=== PATIENT | male | born 1995 | race Caucasian/White ===

== ENCOUNTER 2024-03-11 18:44 | Emergency (ER) | payer BC, SELFPAY ==
[2024-03-11 18:46] VITALS: BP 144/97; BMI 22.3
[2024-03-11] MEDS: VIBRAMYCIN 100 MG PO (20:03)
[2024-03-11] MEDS: MOTRIN 600 MG PO (20:04)
--- NOTE | 2024-03-11 20:31 | ED.GENMED ---
History of Present Illness
General
Chief Complaint: Extremity Pain (non-traumatic)
Source: patient and significant other
Exam Limitations: none
Time Seen by Provider: 03/11/24 19:29
Travel History
Have you had any contact with someone who has COVID-19?: No
Do you have any symptoms of coronavirus? Fever > 100 degrees, chills, cough, shortness of breath, sore throat, loss of taste or smell, muscle aches, or headache?: No
History of Present Illness
History of Present Illness:
this is 28yo male who presents with a swollen and red L elbow. he states he had a little 'bug bite' at his left elbow recently but it had been healing. it was not pustulous. he states that he bumped his L elbow yesterday and it hurt a bit. But
today he noticed swelling and redness. He does have a notable screw in his left elbow that he obtained about 15 years ago after fracture. Patient denies fevers. No history of MRSA.
Past History
Past History
ED Past Medical History: None
ED Past Surgical History: Orthopedic
Social History
Tobacco: Non-smoker
Personal: Single
Living: with family
Phy Exam
Physical Exam
Physical Exam:
CONSTITUTIONAL Vital signs reviewed, Patient alert and oriented to person, place and time. Well-appearing
HEAD atraumatic, normocephalic.
EYES eyelids normal to inspection, Extraocular muscles intact, Conjunctiva normal, Sclera normal.
NECK normal range of motion, Trachea midline, no jugular venous distention.
RESP no respiratory distress
BACK No obvious deformities
UPPER EXTREMITY Gross Range of motion normal, gross motor strength normal. Swollen olecranon bursa on the left with surrounding redness. There is a scabbed lesion on the lateral aspect. He has mild tenderness at the left olecranon bursa. There
is mild warmth. Full range of motion of the elbow and no noted effusion
LOWER EXTREMITY Gross range of motion normal, Gross motor strength normal
NEURO Speech normal, No focal motor deficits include, [place] coma scale 15, Memory normal, Cranial Nerves intact to screening exam.
SKIN Skin warm, dry, and normal in color.
PSYCHIATRIC Patient oriented to person place and time, Normal affect.
Course
Orders/Labs/Results
Orders:
Orders
03/11/24 19:38
CR Elbow - Left Min 3 Views Urgent
Comment:
Reason For Exam: swelling, pain
03/11/24 19:42
Ibuprofen [Motrin] 600 mg PO NOW STA
03/11/24 19:49
Doxycycline [Vibramycin] 100 mg PO NOW STA
Vital Signs
Initial and Last Documented VS:
Initial Vital Signs
Temp Pulse Resp BP Pulse Ox
98.2 F 101 20 144/97 100
03/11/24 18:46 03/11/24 18:46 03/11/24 18:46 03/11/24 18:46 03/11/24 18:46
Last Documented Vital Signs
Temp Pulse Resp BP Pulse Ox
98.2 F 101 20 144/97 100
03/11/24 18:46 03/11/24 18:46 03/11/24 18:46 03/11/24 18:46 03/11/24 18:46
MDM/Problems Addressed
MDM/Problems Addressed:
Septic olecranon bursitis
*Radiology
Radiology exam reviewed: all reviewed NAD by ED Provider
*Pulse Oximetry
Patient hypoxic: no
*Critical Care Note
Total Time (30-74mins, 75-104mins- exclusive of procedures): Not Applicable
Data Reviewed
Source: patient
Prescriptions/Medications Considered But Not Given:
Considered Bactrim but his father has a history of sulfa allergy and will avoid for now
Patient Management
Escalation/DeEscalation of care consider admission/obs:
Small area of redness. Not indicated to aspirate size and drain. Recommended warm compresses and outpatient orthopedic follow-up.
ED Attending Note
-
Portions of this chart may have been created with voice recognition software.� Occasional wrong word or��sound alike� substitutions may have occurred due to the inherent limitations of voice recognition software.
Discharge Plan
Departure
Patient Disposition: Home (Routine Discharge)
Date of Disposition: 03/11/24
Time of Disposition: 20:31
Patient with high blood pressure during this ER visit?: Yes
Discharge Problem:
Septic olecranon bursitis
Instructions: Bursitis ED, BLOOD PRESSURE
Prescriptions:
New
doxycycline monohydrate 100 mg capsule
100 mg PO BID Qty: 14 0RF
No Action
No Meds [No Current Medications]
0
Referrals:
Kevin Nath MD [Active] -
Sergio Juares MD [Family Provider] -
Activity Restrictions/Additional Instructions:
Please avoid pressure on the elbow. Use warm compresses and return immediately for worsening redness, fevers, worsening pain or any other concerns. Please see your doctor or orthopedics in the next 3 to 5 days for follow-up and reevaluation
Interventions
Interventions:
*Risk Screen - Suicide Last Done: 03/11/24 18:46
*Neglect/Abuse Screening Last Done: 03/11/24 18:46
ED- Fall Risk Assessment Last Done: 03/11/24 19:24
*ED COVID-19 Vaccine History Last Done: 03/11/24 18:46
*Nursing Disposition Last Done: 03/11/24 20:44
ED-Skin Assessment Last Done: 03/11/24 19:23
ED-Peripheral Vascular Assessment Last Done: 03/11/24 19:23
ED-Musculoskeletal Assessment Last Done: 03/11/24 19:23
Discharge Date and Time
Discharge Date/Time: 03/11/24 20:45
Print Language: HUNGARIAN
== END 2024-03-11 20:45 | disposition home or self-care (01) ==
LOC: EMR 18:44
PROVIDERS: EMERGENCY PHYSICIAN Emergency Medicine; FAMILY PHYSICIAN Internal Medicine
DX: M71.122 Other infective bursitis, left elbow (principal); R03.0 Elevated blood-pressure reading, without diagnosis of hypertension
CPT/HCPCS: 99283; 73080

== ENCOUNTER 2025-01-05 19:29 | Emergency (ER) | payer BC, SELFPAY ==
[2025-01-05 19:37] VITALS: BP 150/91
[2025-01-05 20:02] LABS: % Basophils 0.5 % (0-2); % Eosinophils 1.7 % (0-6); % Immature Granulocytes 0.2 % (0-0.5); % Lymphocytes 37.6 % (20.5-51.1); % Monocytes 7.6 % (1.7-9.3); % Neutrophils 52.4 % (42.2-75.2); Absolute Eosinophils 0.1 10^3/uL (0-0.7); Absolute Lymphocytes 3.2 10^3/uL (1.2-3.4); Absolute Monocytes 0.6 10^3/uL (0.1-0.6); Absolute Neutrophils 4.4 10^3/uL (1.4-6.5); Hematocrit 45.3 % (39.0-52.0); Hemoglobin 14.4 g/dL (13.0-18.0); Mean Corp Hgb Conc. 31.8 g/dL (33.0-37.0); Mean Corpuscular Hgb 26.2 pg (27.0-31.0); Mean Corpuscular Volume 82.4 fL (80.0-94.0); Mean Platelet Volume 9.4 fL (7.4-10.4); Nucleated Red Blood Cells % 0 % (-); Platelet Count 254 10^3/uL (130-400); Red Cell Dist. Width 12.7 % (11.5-14.5); White Blood Cell Count 8.4 10^3/uL (4.8-10.8)
[2025-01-05 20:15] LABS: ALT (SGPT) 29 U/L (0-50); AST (SGOT) 27 U/L (17-59); Albumin 5.3 g/dl (3.5-5.0); Alkaline Phosphatase 55 U/L (38-126); Blood Urea Nitrogen 15 mg/dl (9-20); Calcium 9.8 mg/dl (8.4-10.2); Carbon Dioxide 27 mmol/L (22-30); Chloride 99 mmol/L (98-107); Glucose 139 mg/dl (70-99); Potassium 3.7 mmol/L (3.5-5.1); Sodium 139 mmol/L (135-145); Total Bilirubin 1.7 mg/dl (0.2-1.3); eGFR > 60.00
[2025-01-05 20:26] LABS: Troponin I < 0.012 ng/ml
[2025-01-05 22:18] VITALS: BP 130/78
[2025-01-05 22:25] VITALS: BMI 23.6
[2025-01-05 23:00] VITALS: BP 118/72
--- NOTE | 2025-01-05 23:23 | ED.GENMED ---
History of Present Illness
General
Chief Complaint: Heart Rate Problem
Source: patient
Exam Limitations: none
Time Seen by Provider: 01/05/25 23:03
Nursing documentation reviewed up to this point in time: agreed with
History of Present Illness
History of Present Illness:
Patient is a 29-year-old male with history of inappropriate sinus tachycardia presents to the ER for evaluation. He reports around 7 PM he was sitting on the couch and felt lightheaded and then felt a fluttering sensation in his chest and felt that
his heart rate was very fast. By the time he got here to the ER he reports his heart rate improved. He had no associated shortness of breath or chest pain with the. He does have report that over the past 5 days he has had some burning discomfort
in his left shoulder/armpit anterior chest region. He had no associated shortness of breath with this. He is followed by Dr. Richar Buckner and sees him yearly.
Past History
Past History
ED Past Medical History: None
ED Past Surgical History: Orthopedic
Social History
Tobacco: Non-smoker
Personal: Single
Living: with family
Review of Systems
Review of Systems
Allergies reviewed?: Yes
All Other Systems: ROS reviewed and negative except as documented in HPI and ROS
Constitutional: Reports no symptoms; Denies fever, fatigue or chills
EENT: Reports no symptoms
Respiratory: Denies cough or trouble breathing
Cardiac: Reports chest pain and palpitations
ABD/GI: Reports no symptoms
: Reports no symptoms
Musculoskeletal: Reports no symptoms
Skin: Reports no symptoms
Neurological: Reports no symptoms
Psychiatric: Reports no symptoms
Phy Exam
General Physical Exam
General Presentation: no apparent distress
General age: appears stated age
General Skin: warm and dry
General Habitus: normal
General Mental: alert
General Hydration: appears well hydrated
Cardiovascular Exam
Cardiovascular Exam: no murmur and tachycardia
Pulmonary Exam
Pulmonary Exam: lungs clear and no respiratory distress
Neurological Exam
Neurological Exam: alert and oriented x3
Musculoskeletal Exam
Musculoskeletal Exam: full ROM and other (Chest wall nontender to palpation)
Skin Exam
Skin Exam: normal color and warm/dry
Psychiatric Exam
Psychiatric Exam: normal mood/affect
Course
Orders/Labs/Results
Orders:
Orders
01/05/25 19:32
EKG [Electrocardiogram (*1)] Urgent
Reason for Study: Chest Pain
01/05/25 19:33
EKG- Treatment ONCE
01/05/25 19:53
Complete Blood Count/With Diff Urgent
01/05/25 19:54
Comprehensive Metabolic Panel Urgent
Free T4 Urgent
TSH Reflex To Free T4 Urgent
Comment: ADD ON
Troponin I Urgent
01/06/25 00:00
CR Chest - 2 Views Urgent
Reason For Exam: cp
01/06/25 00:46
CT Chest PE Study Urgent
Comment:
Reason For Exam: cp tacy
01/06/25 00:51
Add On- LAB Urgent
Tests Added?: tsh w/reflexive t4
01/06/25 01:57
Ketorolac [Toradol] 15 mg .ROUTE .STK-MED ONE
Abnormal Lab Results
01/05/25 01/05/25
19:53 19:54
MCH 26.2 L pg
(27.0-31.0)
MCHC 31.8 L g/dL
(33.0-37.0)
Glucose 139 H mg/dl
(70-99)
Total Bilirubin 1.7 H mg/dl
(0.2-1.3)
Albumin 5.3 H g/dl
(3.5-5.0)
TSH (Reflex) 6.04 H uIU/ml
(0.47-4.68)
01/05/25 19:53
01/05/25 19:54
Vital Signs
Initial and Last Documented VS:
Initial Vital Signs
Temp Pulse Resp BP Pulse Ox
98.3 F 110 18 150/91 99
01/05/25 19:37 01/05/25 19:37 01/05/25 19:37 01/05/25 19:37 01/05/25 19:37
Last Documented Vital Signs
Temp Pulse Resp BP Pulse Ox
98.3 F 69 15 116/81 99
01/05/25 19:37 01/06/25 02:45 01/06/25 02:45 01/06/25 02:00 01/06/25 02:45
Sports Internship consulted with Physician
Sports Internship consulted with physician?: Yes
Name of Physician Consulted: DR Marie
MDM/Problems Addressed
MDM/Problems Addressed:
As documented patient is a 29-year-old male with history of inappropriate tachycardia followed by cardiology on metoprolol presents to the ER for evaluation. He was sitting on a sofa felt like he was going to pass out felt a fluttering in his chest
and then felt a rapid heart sensation. As document he also has an intermittent chest burning over the past several days. He is in no acute distress he is intermittently tachycardic cardiac troponin negative. Case discussed ED physician with
chest pain and tachycardia will order CT to rule out PE if negative patient stable to discharge home with outpatient follow with his pbx operator Dr. Richar Buckner.
CAT scan negative for PE. Patient was given Toradol here which resolved patient's chest pain. His heart rate has improved. He is in no acute distress while patient was monitored here other than sinus tachycardia there is no other arrhythmia found
on the monitor. Patient is anxious and anxious over symptoms however feels better since pain is resolved. Discussed close outpatient follow-up with his pbx operator Dr. Buckner.
*Radiology
Radiology exam reviewed: radiology read reviewed
*EKG
Interpreted by ED Provider?: Yes
Heart Rate: 114
Rate: tachycardiac
Rhythm: sinus
Ischemia: non-specific ST changes
*Critical Care Note
Total Time (30-74mins, 75-104mins- exclusive of procedures): Not Applicable
ED Attending Note
-
Portions of this chart may have been created with voice recognition software.� Occasional wrong word or��sound alike� substitutions may have occurred due to the inherent limitations of voice recognition software.
Discharge Plan
Departure
Patient Disposition: Home (Routine Discharge)
Date of Disposition: 01/06/25
Time of Disposition: 02:56
Patient with high blood pressure during this ER visit?: Yes
Condition: Fair
Discharge Problem:
Heart palpitations, Tachycardia, Chest pain
Instructions: Palpitations (DC), Chest Pain DCA Follow Up, BLOOD PRESSURE
Prescriptions:
No Action
No Meds [No Current Medications]
0
doxycycline monohydrate 100 mg capsule
100 mg PO BID Qty: 14 0RF
Referrals:
Jo Ann Morgan CRNP [Family Provider] -
Richar Buckner MD [Active] -
Activity Restrictions/Additional Instructions:
As discussed follow-up with your pbx operator please call tomorrow to make an appointment. Stay well-hydrated. Return if if any worsening of symptoms.
Interventions
Interventions:
*Risk Screen - Suicide Last Done: 01/05/25 19:37
*General Assessment Last Done: 01/05/25 19:37
*Neglect/Abuse Screening Last Done: 01/05/25 19:37
*ED COVID-19 Vaccine History Last Done: 01/05/25 22:32
ED- Cardiac Assessment Last Done: 01/05/25 22:24
ED- Pulmonary Assessment Last Done: 01/05/25 22:24
Discharge Date and Time
Print Language: SAMI
[2025-01-06] VITALS: BP 114/76
[2025-01-06 02:00] VITALS: BP 116/81
[2025-01-06 02:31] LABS: TSH Reflex To Free T4 6.04 uIU/ml (0.47-4.68)
[2025-01-06 02:32] LABS: Free T4 1.21 ng/dl (0.78-2.19)
--- NOTE | 2025-01-06 02:44 | DOWNTIME ---
There was a [employer] Client [employer] Support Specialist Downtime on 01/06/2025 from 0100 to 01/06/2024 at 0235 . Downtime documentation of patient's care, including medication administrations, has been reconciled in the electronic record per guidelines. Refer to the
patient's paper chart under the miscellaneous tab to see printed paper medication records and downtime forms.
== END 2025-01-06 03:05 | disposition home or self-care (01) ==
LOC: EMR 19:29
PROVIDERS: Emergency Medicine; EMERGENCY PHYSICIAN Student in an Organized Health Care Education/Training Program; FAMILY PHYSICIAN Nurse Practitioner Adult Health
DX: R00.2 Palpitations (principal); R00.0 Tachycardia, unspecified; R07.89 Other chest pain; R03.0 Elevated blood-pressure reading, without diagnosis of hypertension
CPT/HCPCS: 99285; 71046; 71275; 80053; 84439; 84443; 84484; 85025; 93005; Q9967

== ENCOUNTER → 2025-01-16 09:49 | Outpatient (REF) | payer BC, SELFPAY | LOC: RCS 09:49 | PROVIDERS: ATTENDING PHYSICIAN Internal Medicine Cardiovascular Disease; FAMILY PHYSICIAN Nurse Practitioner Adult Health; REFERRING PHYSICIAN Internal Medicine Cardiovascular Disease | DX: R06.09 Other forms of dyspnea (principal) | CPT/HCPCS: 93306 ==

== ENCOUNTER → 2025-01-22 14:53 | Outpatient (REF) | payer BC, SELFPAY | LOC: RCS 14:53 | PROVIDERS: ATTENDING PHYSICIAN Internal Medicine Cardiovascular Disease; FAMILY PHYSICIAN Nurse Practitioner Adult Health; REFERRING PHYSICIAN Internal Medicine Cardiovascular Disease | DX: R07.89 Other chest pain (principal); R06.09 Other forms of dyspnea | CPT/HCPCS: 93017 ==